=== PATIENT | male | born 1955 | race Caucasian/White ===

== ENCOUNTER 2025-04-07 20:17 | Inpatient (IN) | payer MEDICARE, MEDICAID ==
[~2025-04-07] VITALS: Ht 182.9 cm; Wt 89.8 kg
[2025-04-07 20:30] VITALS: O2SAT 100
[2025-04-07] MEDS: SODIUM CHLORIDE 0.9% 1,000 ML IV ONE (21:37)
[2025-04-07 22:21] LABS: BASOPHILS % 0.2 % (0.0-2.0); EOSINOPHILS % 0.1 % (0.0-5.0); HEMATOCRIT. 35.2 % (42.0-52.0); HEMOGLOBIN. 11.6 g/dL (14.0-18.0); LYMPHOCYTES % 21.7 % (20.0-50.0); MEAN PLATELET VOLUME 10.4 fl (7.4-10.4); MONOCYTES % 9.9 % (2.0-8.0); NEUTROPHILS % 68.1 % (40.0-76.0); PLATELET 191 x1000/uL (130-400); RED BLOOD CELL COUNT 3.26 mill/uL (4.7-6.1); RED CELL DISTRIBUTION WIDTH 12.7 % (11.6-14.6)
[2025-04-07 22:36] LABS: CREATININE 0.8 mg/dL (0.6-1.3); UREA NITROGEN BLOOD 22 mg/dL (9-23)
[2025-04-07 22:38] LABS: BILIRUBIN DIRECT 0.2 mg/dL (<=3.0)
[2025-04-07 22:39] LABS: BILIRUBIN TOTAL 0.4 mg/dL (0.1-1.0); PROTEIN TOTAL 6.0 g/dL (6.0-8.3)
[2025-04-07 23:37] LABS: CLARITY URINE CLEAR (CLEAR); COLOR URINE YELLOW (YELLOW)
[2025-04-07 23:38] LABS: GLUCOSE URINE NEGATIVE (NEGATIVE); KETONES URINE TRACE (NEGATIVE); LEUKOCYTE ESTERASE URINE NEGATIVE (NEGATIVE); NITRITE URINE NEGATIVE (NEGATIVE); OCCULT BLOOD URINE NEGATIVE (NEGATIVE); PH URINE 5.0 (4.5-8.0); PROTEIN URINE TRACE (NEGATIVE); SPECIFIC GRAVITY URINE 1.028 (1.005-1.030); UROBILINOGEN URINE 0.2 E.U./dL (0.2-1.0)
[2025-04-08] VITALS (8 sets, daily range): BP systolic 90–119; BP diastolic 44–63; PULSE 69–105; RESP 17–20; TEMP 36.1–37.28076; O2SAT 98–99
[2025-04-08] MEDS: CEFTRIAXONE 1GM/50ML 50 ML IV NR (00:22)
[2025-04-08] MEDS: METRONIDAZOLE 500 MG PREMIX 100 ML IV NR (00:53)
[2025-04-08 01:03] LABS: ASPARTATE AMINOTRANSFERASE 19 IU/L (<34)
[2025-04-08] MEDS ORDERED: ACETAMINOPHEN 325MG TABLET PO PRN ×2 (02:15)
[2025-04-08] MEDS ORDERED: ONDANSETRON HCL 4MG/2ML INJ IV PRN (02:15)
[2025-04-08] MEDS ORDERED: DEXTROSE 50% WATER 50ML SYRINGE IV PRN (02:15)
[2025-04-08] MEDS ORDERED: IPRATROPIUM/ALBUTEROL 0.5-3(2.5)MG/3ML NEB HHN PRN (02:15)
[2025-04-08] MEDS: DEXT 5%/0.45% NACL 1000ML 1,000 ML IV SCH (03:00)
[2025-04-08 07:13] LABS: CREATININE 0.8 mg/dL (0.6-1.3); UREA NITROGEN BLOOD 21 mg/dL (9-23)
[2025-04-08 07:16] LABS: BASOPHILS % 0.1 % (0.0-2.0); EOSINOPHILS % 0.1 % (0.0-5.0); HEMATOCRIT. 25.3 % (42.0-52.0); HEMOGLOBIN. 8.3 g/dL (14.0-18.0); LYMPHOCYTES % 11.3 % (20.0-50.0); MEAN PLATELET VOLUME 10.3 fl (7.4-10.4); MONOCYTES % 10.4 % (2.0-8.0); NEUTROPHILS % 78.1 % (40.0-76.0); PLATELET 139 x1000/uL (130-400); RED BLOOD CELL COUNT 2.33 mill/uL (4.7-6.1); RED CELL DISTRIBUTION WIDTH 13.0 % (11.6-14.6)
[2025-04-08 07:25] LABS: PHOSPHORUS 3.8 mg/dL (2.5-4.9)
[2025-04-08 08:00] LABS: RBC URINE NONE SEEN /hpf (0-2); WBC URINE NONE SEEN /hpf (0-2)
[2025-04-08 08:01] LABS: BACTERIA URINE TR; HYALINE CASTS URINE 0-5 /lpf
[2025-04-08] MEDS: PANTOPRAZOLE SODIUM 40 MG/VIAL IV SCH ×2 (09:26→12:30)
[2025-04-08] MEDS: THIAMINE HCL 100MG TABLET PO SCH (09:26)
[2025-04-08] MEDS: MAGNESIUM 2 G PREMIX 50 ML IV NR (09:26)
[2025-04-08] MEDS: SODIUM CHLORIDE 0.9% 500 ML IV SCH (09:42)
[2025-04-08 13:34] LABS: FOLIC ACID (FOLATE) SERUM 5.46 ng/mL (>5.38)
[2025-04-08 13:35] LABS: VITAMIN B12 SERUM 340 pg/mL (211-911)
[2025-04-08] MEDS: PIPERACILLIN/TAZO 3.375G/50ML 50 ML IV SCH (14:07)
[2025-04-08] MEDS: FERROUS SULFATE 325MG TABLET PO SCH (14:07)
[2025-04-08] MEDS: ASCORBIC ACID 500 MG TABLET PO SCH (14:07)
[2025-04-08] MEDS ORDERED: SODIUM CHLORIDE 0.9% 500 ML IV NR (16:24)
[2025-04-08 16:35] LABS: INR 1.2
[2025-04-08] MEDS ORDERED: SUCRALFATE 1G TABLET PO SCH (17:20)
[2025-04-09] VITALS (24 sets, daily range): BP systolic 96–132; BP diastolic 50–96; PULSE 66–101; RESP 12–25; TEMP 36.3918–37.3; O2SAT 95–100
[2025-04-09] MEDS ORDERED: SODIUM CHLORIDE 0.9% 1,000 ML IV NR (00:15)
[2025-04-09] MEDS: LORAZEPAM 0.5MG TABLET PO PRN (06:27)
[2025-04-09] MEDS ORDERED: GABA800T97 PO (06:58)
[2025-04-09 07:26] LABS: BASOPHILS % 0.1 % (0.0-2.0); EOSINOPHILS % 0.1 % (0.0-5.0); LYMPHOCYTES % 13.0 % (20.0-50.0); MEAN PLATELET VOLUME 10.4 fl (7.4-10.4); MONOCYTES % 8.9 % (2.0-8.0); NEUTROPHILS % 77.9 % (40.0-76.0); PLATELET 80 x1000/uL (130-400); RED BLOOD CELL COUNT 1.84 mill/uL (4.7-6.1)
[2025-04-09 07:49] LABS: CREATININE 0.6 mg/dL (0.6-1.3); TRIGLYCERIDE 124 mg/dL (0-150)
[2025-04-09 07:50] LABS: LDL CHOLESTEROL 46 mg/dL (5-100); UREA NITROGEN BLOOD 19 mg/dL (9-23)
[2025-04-09 07:51] LABS: PHOSPHORUS 2.9 mg/dL (2.5-4.9)
[2025-04-09 07:53] LABS: T4 FREE 1.55 ng/dL (0.89-1.76)
[2025-04-09 08:42] LABS: HEMATOCRIT. 18.9 % (42.0-52.0); HEMOGLOBIN. 6.3 g/dL (14.0-18.0); RED CELL DISTRIBUTION WIDTH 16.2 % (11.6-14.6)
[2025-04-10] VITALS (42 sets, daily range): BP systolic 101–154; BP diastolic 49–93; PULSE 56–93; RESP 12–23; TEMP 36.3–36.9474; O2SAT 96–100
[2025-04-10 07:07] LABS: CREATININE 0.7 mg/dL (0.6-1.3); UREA NITROGEN BLOOD 14 mg/dL (9-23)
[2025-04-10 07:21] LABS: BASOPHILS % 0.2 % (0.0-2.0); EOSINOPHILS % 0.8 % (0.0-5.0); HEMATOCRIT. 21.1 % (42.0-52.0); HEMOGLOBIN. 7.2 g/dL (14.0-18.0); LYMPHOCYTES % 15.6 % (20.0-50.0); MEAN PLATELET VOLUME 10.2 fl (7.4-10.4); MONOCYTES % 12.1 % (2.0-8.0); NEUTROPHILS % 71.3 % (40.0-76.0); PLATELET 85 x1000/uL (130-400); RED BLOOD CELL COUNT 2.21 mill/uL (4.7-6.1); RED CELL DISTRIBUTION WIDTH 20.4 % (11.6-14.6)
[2025-04-10] MEDS ORDERED: CALCIUM GLUCONATE 1,000 MG in DEXT 5% WATER 90 ML IV ONE (13:45)
[2025-04-10] MEDS: CALCIUM GLUCONATE 1GM PREMIX 50ML IV SCH (14:56)
[2025-04-11] VITALS (31 sets, daily range): BP systolic 120–178; BP diastolic 54–92; PULSE 50–115; RESP 10–24; TEMP 36.4–37.1; O2SAT 96–100
[2025-04-11] MEDS: IOHEXOL-350 100 ML BOTTLE ONE ×2 (07:52)
[2025-04-11] MEDS: CLONIDINE 0.1MG TABLET PO PRN (09:09)
[2025-04-11 12:59] LABS: BASOPHILS % 0.3 % (0.0-2.0); EOSINOPHILS % 2.0 % (0.0-5.0); HEMATOCRIT. 28.3 % (42.0-52.0); HEMOGLOBIN. 9.4 g/dL (14.0-18.0); LYMPHOCYTES % 19.0 % (20.0-50.0); MEAN PLATELET VOLUME 9.9 fl (7.4-10.4); MONOCYTES % 12.3 % (2.0-8.0); NEUTROPHILS % 66.4 % (40.0-76.0); PLATELET 99 x1000/uL (130-400); RED BLOOD CELL COUNT 2.93 mill/uL (4.7-6.1); RED CELL DISTRIBUTION WIDTH 19.0 % (11.6-14.6)
[2025-04-11 13:06] LABS: CREATININE 0.7 mg/dL (0.6-1.3)
[2025-04-11 13:07] LABS: UREA NITROGEN BLOOD 8 mg/dL (9-23)
[2025-04-11 13:08] LABS: ASPARTATE AMINOTRANSFERASE 21 IU/L (<34)
[2025-04-11 13:09] LABS: BILIRUBIN TOTAL 0.9 mg/dL (0.1-1.0); PROTEIN TOTAL 5.2 g/dL (6.0-8.3)
[2025-04-12] VITALS (12 sets, daily range): BP systolic 107–181; BP diastolic 61–92; PULSE 66–97; RESP 8–19; TEMP 36.6–37.1; O2SAT 97–100
[2025-04-12 11:23] LABS: BASOPHILS % 0.3 % (0.0-2.0); EOSINOPHILS % 1.9 % (0.0-5.0); HEMATOCRIT. 24.7 % (42.0-52.0); HEMOGLOBIN. 8.2 g/dL (14.0-18.0); LYMPHOCYTES % 18.3 % (20.0-50.0); MEAN PLATELET VOLUME 10.1 fl (7.4-10.4); MONOCYTES % 12.8 % (2.0-8.0); NEUTROPHILS % 66.7 % (40.0-76.0); PLATELET 140 x1000/uL (130-400); RED BLOOD CELL COUNT 2.54 mill/uL (4.7-6.1); RED CELL DISTRIBUTION WIDTH 18.9 % (11.6-14.6)
[2025-04-12 12:01] LABS: CREATININE 0.8 mg/dL (0.6-1.3); UREA NITROGEN BLOOD 12 mg/dL (9-23)
[2025-04-13] VITALS (10 sets, daily range): BP systolic 110–148; BP diastolic 60–91; PULSE 55–85; RESP 12–18; TEMP 36.2–36.6; O2SAT 96–100
[2025-04-13] MEDS ORDERED: THIA100T72 PO (14:08)
[2025-04-13] MEDS ORDERED: FERR-63 PO (14:08)
[2025-04-13] MEDS ORDERED: ASCO500T20 PO (14:08)
[2025-04-13] MEDS ORDERED: PROT40 MT (14:08)
== END 2025-04-13 16:49 | disposition home or self-care (01) | DRG 378 ==
LOC: ER 20:17 → 6EST 23:56 → EDBEDREQ 23:58 → EDBEDREQTM 23:58 → ENRESERV 04-08 00:14 → 5EST 04-09 01:09
PROVIDERS: ADMIT Internal Medicine; ATTEND Internal Medicine
PROC: 30233N1 Transfusion of Nonautologous Red Blood Cells into Peripheral Vein, Percutaneous Approach (ICD-10-PCS; principal; 2025-04-08)
PROC: 30233K1 Transfusion of Nonautologous Frozen Plasma into Peripheral Vein, Percutaneous Approach (ICD-10-PCS; 2025-04-10)
DX: K57.33 Diverticulitis of large intestine without perforation or abscess with bleeding (principal); F10.139 Alcohol abuse with withdrawal, unspecified; K74.60 Unspecified cirrhosis of liver; D53.9 Nutritional anemia, unspecified; E83.42 Hypomagnesemia; F17.210 Nicotine dependence, cigarettes, uncomplicated; D50.8 Other iron deficiency anemias; I10 Essential (primary) hypertension; K27.9 Peptic ulcer, site unspecified, unspecified as acute or chronic, without hemorrhage or perforation; K80.20 Calculus of gallbladder without cholecystitis without obstruction; K59.00 Constipation, unspecified; K40.20 Bilateral inguinal hernia, without obstruction or gangrene, not specified as recurrent; Z79.899 Other long term (current) drug therapy; Z86.0100 Personal history of colon polyps, unspecified; Z87.11 Personal history of peptic ulcer disease
CPT/HCPCS: 36415; 74174; 74177; 76700; 78278; 80048; 80053; 80061; 80076; 80320; 81003; 82607; 82728; 82746; 83036; 83540; 83550; 83735; 84100; 84439; 84443; 85014; 85018; 85025; 85044; 86850; 86900; 86920; 86927; 93970; 93976; 99291; A4606; A9560; J0612; J0696; J2470; J2543; J3475; J3490; J7030; P9016; P9017; Q9967; G0480